=== PATIENT | female | born 1945 | race Caucasian/White ===

== ENCOUNTER 2016-05-12 18:34 | Inpatient (IN) | payer MEDICARE, BC ==
[2016-05-12] MEDS ORDERED: ONDANSETRON HCL IV 4 MG/2 ML VIAL IVP ONE (18:51)
[2016-05-12] MEDS ORDERED: MORPHINE SULFATE 5 MG/ML PFS IVP ONE ×2 (18:51→20:49)
--- NOTE | 2016-05-12 18:56 | Emergency Department Record ---
History of Present Illness - General Chief Complaint: Abdominal Pain Stated Complaint: ABD PAIN Time Seen by Provider: 05/12/16 18:41 Source: Patient Mode of Arrival: Ambulatory Limitations: No limitations - History of Present Illness Initial Comments: 71 yo female presents to ED with a CC of epigastric pain that has since traveled down to the kody-umbilical and RLQ on examination. Patient denies nausea or vomiting, denies change in stools. Patient denies fevers, chills, or urinary symptoms. Patient denies health problems other than HTN. Patient is s/ p RENAE nunez. Complaint: Abdominal pain Onset/Timin -: Hour(s) Location: Epigastric Radiation: RLQ Severity: Moderate Quality: Aching Consistency: Constant Improves With: Nothing Worsens With: Other (palpation) Associated Symptoms: Denies other symptoms - Related Data Patient : No Home Medications Medication Instructions Recorded Confirmed Last Taken Aspirin 81 mg PO DAILY 05/12/16 05/12/16 Unknown Cholecalciferol (Vitamin D3) 2 tab PO ASDIR 05/12/16 05/12/16 Unknown [Vitamin D3] Docusate Sodium [Colace] 100 mg PO DAILY 05/12/16 05/12/16 Unknown Estrogens, Conjugated [Premarin] 0 gm VG ASDIR 05/12/16 05/12/16 Unknown Fexofenadine HCl [Nicky Allergy] 180 mg PO DAILY 05/12/16 05/12/16 Unknown Glucosamine/Chondroiti/Hrb#270 1 each PO DAILY 05/12/16 05/12/16 Unknown [Cosamin Asu Capsule] Ipratropium [place] [Atrovent Hfa] 12.9 gm IH TID 05/12/16 05/12/16 Unknown Losartan Potassium [Cozaar] 25 mg PO DAILY 05/12/16 05/12/16 Unknown Mometasone/Formoterol [Dulera 100 2 spray INH DAILY 05/12/16 05/12/16 Unknown Mcg/5 Mcg Inhaler] Omeprazole 20 mg PO DAILY 05/12/16 05/12/16 Unknown Polyethylene Glycol 3350 [Miralax] 17 gm PO DAILY 05/12/16 05/12/16 Unknown Psyllium Husk [Metamucil] 660 gm PO ASDIR 05/12/16 05/12/16 Unknown Sodium Fluoride/Potassium Nit 100 ml DT DAILY 05/12/16 05/12/16 Unknown [Prevident 5000 Sensitive Paste] Triamcinolone Acet Cream [Kenalog 1 apply TP TID 05/12/16 05/12/16 Unknown Cream] Valacyclovir HCl [Valtrex] 1,000 mg PO TID PRN 05/12/16 05/12/16 Unknown Allergies Allergy/AdvReac Type Severity Reaction Status Date / Time adhesive tape Allergy PT UNSURE Verified 05/12/16 19:26 OF REACTION aloe vera [From Dermoplast] Allergy PT UNSURE Verified 05/12/16 19:26 OF REACTION benzocaine [From Dermoplast] Allergy PT UNSURE Verified 05/12/16 19:26 OF REACTION fexofenadine HCl Allergy PT UNSURE Verified 05/12/16 19:26 [From Nicky] OF REACTION lanolin [From Dermoplast] Allergy PT UNSURE Verified 05/12/16 19:26 OF REACTION nitrofurantoin Allergy PT UNSURE Verified 05/12/16 19:26 macrocrystalline OF REACTION [From Macrodantin] novobiocin Allergy PT UNSURE Verified 05/12/16 19:26 OF REACTION Penicillins Allergy PT UNSURE Verified 05/12/16 19:11 OF REACTION tetracycline Allergy PT UNSURE Verified 05/12/16 19:11 OF REACTION panalba Allergy PT UNSURE Uncoded 05/12/16 19:26 OF REACTION Review of Systems Constitutional: Denies: Chills, Fever, Malaise, Night sweats Eyes: Denies: Eye discharge, Eye pain ENT: Denies: Congestion, Ear pain, Epistaxis Respiratory: Denies: Cough, Dyspnea Cardiovascular: Denies: Chest pain, Dyspnea on exertion Endocrine: Denies: Fatigue, Heat or cold intolerance Gastrointestinal: Reports: Abdominal pain. Denies: Nausea, Vomiting Genitourinary: Denies: Frequency, Hematuria, Incontinence Musculoskeletal: Denies: Arthralgia, Back pain, Gout, Joint swelling Skin: Denies: Bruising, Change in color Neurological: Denies: Abnormal gait, Confusion, Headache, Tingling, Tremors Psychiatric: Denies: Anxiety Hematological/Lymphatic: Denies: Anemia, Blood Clots Physical Exam - General General Appearance: Alert, Oriented x3, Cooperative, Mild distress Limitations: No limitations - Head Head exam: Atraumatic, Normocephalic, Normal inspection Head exam detail: negative: Abrasion, Contusion, Marquez's sign, General tenderness, Hematoma, Laceration - Eye Eye exam: Normal appearance. negative: Conjunctival injection, Periorbital swelling, Periorbital tenderness, Scleral icterus - ENT Ear exam: negative: Auricular hematoma, Auricular trauma Nasal Exam: negative: Active bleeding, Discharge, Dried blood, Foreign body Mouth exam: negative: Drooling, Laceration, Muffled voice, Tongue elevation - Neck Neck exam: Normal inspection. negative: Meningismus, Tenderness - Respiratory Respiratory exam: Normal lung sounds bilaterally. negative: Respiratory distress, Rhonchi, Stridor, Wheezes - Cardiovascular Cardiovascular Exam: Regular rate, Normal rhythm, Normal heart sounds - GI/Abdominal GI/Abdominal exam: Soft, Tenderness, Other (TTP epigastric, kody-umbilical, and RLQ regions on examination, no rebound, guarding, or peritoneal signs.). negative: Pulsatile mass, Rebound, Rigid - Rectal Rectal exam: Deferred - exam: Deferred - Extremities Extremities exam: Normal inspection. negative: Calf tenderness, Pedal edema, Tenderness - Back Back exam: Denies: CVA tenderness (R), CVA tenderness (L) - Neurological Neurological exam: Alert, Normal gait, Oriented X3 - Psychiatric Psychiatric exam: Normal affect, Normal mood - Skin Skin exam: Normal color. negative: Abrasion Type of lesion: negative: abrasion Course - Reevaluation(s) Reevaluation #1: 05/12/16 19:17 EKG: NSR 63 Normal axis, normal intervals T wave inversion III, AVF, ST changes V5-V6. No previous on record. Reevaluation #2: 05/12/16 20:13 Labs reviewed and are grossly unremarkable for an acute process. Reevaluation #3: 05/12/16 20:38 CT Abdomen and Pelvis: SBO right lower quadrant likely secondary to adhesions vs. internal hernia. Reevaluation #4: 05/12/16 20:51 Case was discussed with Faith Zelaya, will accept admission. Medical Decision Making - Lab Data Result diagrams: 05/12/16 19:20 05/12/16 19:20 Disposition Disposition: Admit Clinical Impression: SBO (small bowel obstruction) Disposition: Still a Patient at [facility] Decision to Admit: Admit from ER Decision to Admit Date: 05/12/16 Decision to Admit Time: 20:53 Condition: (2) Stable Forms: Patient Portal Access Time of Disposition: 20:53
[2016-05-12] MEDS ORDERED: 0.9 % SODIUM CHLORIDE 1000ML 1,000 ML IV SCH (19:00)
[2016-05-12 19:31] LABS: BASO % 0.2 % (0-6); EOS % 1.5 % (0-6); GRAN % 63.9 % (47-80); HEMATOCRIT 41.2 % (35.0-47.0); HEMOGLOBIN 13.8 gm/dl (11.6-16.0); LYMPH % 28.1 % (16-45); MEAN CELL VOLUME 89.2 fl (81-97); MEAN CORPUSCULAR HEMOGLOBIN 29.9 pg (27-33); MEAN CORPUSCULAR HGB CONC 33.5 g/dl (32-36); MEAN PLATELET VOLUME 10.2 fl (7.4-10.4); MONO % 6.3 % (0-9); PLATELET COUNT 302 K/uL (130-400); RED BLOOD COUNT 4.62 M/uL (3.80-5.40); RED CELL DISTRIBUTION WIDTH 13.5 % (11.5-14.5); WHITE BLOOD COUNT W/O DIFF 8.1 K/uL (4.2-12.2)
[2016-05-12 19:45] LABS: ALB/GLOB RATIO 1.3 (1.1-1.8); ALBUMIN 4.2 gm/dL (3.5-5.0); ALKALINE PHOSPHATASE 90 U/L (38-126); ALT/SGPT 32 U/L (9-52); AST/SGOT 24 U/L (14-36); BLOOD UREA NITROGEN 15 mg/dL (7-17); CREATININE 0.8 mg/dL (0.52-1.04); EST GLOMERULAR FILTRATION RATE > 60 ml/min; GLUCOSE,RANDOM 136 mg/dL (70-110); LIPASE 70 U/L (23-300); TOTAL PROTEIN 7.4 gm/dL (6.3-8.2)
[2016-05-12 20:45] LABS: URINE APPEARANCE CLEAR; URINE BILIRUBIN NEGATIVE (NEGATIVE); URINE COLOR YELLOW; URINE GLUCOSE (UA) NEGATIVE (NEGATIVE); URINE KETONE NEGATIVE (NEGATIVE); URINE LEUKOCYTE ESTERASE NEGATIVE (NEGATIVE); URINE NITRITE NEGATIVE (NEGATIVE); URINE PROTEIN NEGATIVE (NEGATIVE); URINE UROBILINOGEN 0.2 E.U./dL (0.20 - 1.00)
[2016-05-12 20:46] LABS: URINE BLOOD NEGATIVE (NEGATIVE)
[2016-05-12] MEDS ORDERED: TRIAMCINOLONE ACET 0.1% CREAM 15G TUBE TOP SCH (22:19)
[2016-05-12] MEDS ORDERED: IPRATROPIUM INH SCH (22:19)
[2016-05-12] MEDS ORDERED: ESTROGENS CONJ VG SCH (22:19)
[2016-05-12] MEDS ORDERED: 0.9 % SODIUM CHLORIDE 1000ML 1,000 ML IV PRN (22:19)
[2016-05-13] MEDS: MORPHINE SULFATE 5 MG/ML PFS IVP PRN ×5 (00:04→22:53)
[2016-05-13] MEDS: ONDANSETRON HCL IV 4 MG/2 ML VIAL IVP PRN ×4 (00:17→16:12)
[2016-05-13] MEDS: CALCIUM CARBONATE 500 MG TAB.CHEW PO PRN (05:32)
--- NOTE | 2016-05-13 07:26 | History & Physical ---
History of Present Illness - Date of Service Date of Service for History & Physical: 05/13/16 - History of Present Illness Admitting Diagnosis: Small Bowel Obstruction History of Present Illness: 71yo female with CC of epigastric pain radiating to the lower right quadrant. She has a history of high blood pressure and several abdominal surgeries including lap mayra, total abdominal hysterectomy, tubal ligation, and rectocele. Patient presented to the ED yesterday evening with sharp pain in the epgastric region radiating to her right lower abdomen unlike anything she had before. She says this pain came on suddenly after eating some frito's. She says the pain became so intense she decided to come to the ED. while in the ED, patient had negative CE and EKG with some T wav inversions with no old ekg to compare. CBC and CMP unremarkable. she had abdominal CT that showed likely SBO in the right lower quadrant. Dr. Perry was contacted by ED physician. Patient started on IV NS at 125cc/hr, made NPO and admitted for obstruction. 05/13/16- Patient states she is feeling better this morning. Still having abdominal pain in the epigastric region that is constant at about a 3-4. She reprots feeling the belly is more distended than usual. Last BM was yesterday morning. Says she had flatulence up until before she came to the ED. Not sure if she has passed any since. Had not been constipated leading up to this. Had normal BM daily. no liquid stool. She did have one episode of bile emesis. She says she is not really feeling nauseous and has been belching some. She denies previous obstructions. PCP: Brinda Travel Screening - Travel/Exposure Within Last 30 Days Have you traveled within the last 30 days?: No - Travel/Exposure Within Last Year Have you traveled outside the [place] in the last year?: No - Additonal Travel Details Have you been exposed to anyone with a communicable illness?: No - Travel Symptoms Symptom Screening: Stomach Pain Review of Systems Constitutional: Denies: Chills, Fever, Malaise, Night sweats Eyes: Denies: Eye discharge, Eye pain ENT: Denies: Congestion, Ear pain, Epistaxis Respiratory: Denies: Cough, Dyspnea Cardiovascular: Denies: Chest pain, Dyspnea on exertion Endocrine: Denies: Fatigue, Heat or cold intolerance Gastrointestinal: Reports: Abdominal pain. Denies: Nausea, Vomiting Genitourinary: Denies: Frequency, Hematuria, Incontinence Musculoskeletal: Denies: Arthralgia, Back pain, Gout, Joint swelling Skin: Denies: Bruising, Change in color Neurological: Denies: Abnormal gait, Confusion, Headache, Tingling, Tremors Psychiatric: Denies: Anxiety Hematological/Lymphatic: Denies: Anemia, Blood Clots Past Medical History - SOCIAL HISTORY Smoking Status: Never smoker Alcohol Use: Rare Drug Use: None - RESPIRATORY Hx Respiratory Disorders: No - CARDIOVASCULAR Hx Cardio Disorders: Yes Hx Hypertension: Yes - NEURO Hx Neuro Disorders: No Hx TIA: Yes (1999) - GI Hx GI Disorders: No Hx Hiatal Hernia: Yes - Hx Genitourinary Disorders: No Hx UTI: Yes - ENDOCRINE Hx Endocrine Disorders: No - MUSCULOSKELETAL Hx Musculoskeletal Disorders: Yes Hx Arthritis: Yes - PSYCH Hx Psych Problems: No - HEMATOLOGY/ONCOLOGY Hx Hematology/Oncology Disorders: No Family Medical History Any Significant Family History?: No Hx Diabetes: Father, Brother/Sister Hx HTN: Mother, Brother/Sister Hx Stroke: Grandparents H&P Meds/Allergies - Allergies Allergies: Allergies Allergy/AdvReac Type Severity Reaction Status Date / Time adhesive tape Allergy PT UNSURE Verified 05/12/16 19:26 OF REACTION aloe vera [From Dermoplast] Allergy PT UNSURE Verified 05/12/16 19:26 OF REACTION benzocaine [From Dermoplast] Allergy PT UNSURE Verified 05/12/16 19:26 OF REACTION fexofenadine HCl Allergy PT UNSURE Verified 05/12/16 19:26 [From Nicky] OF REACTION lanolin [From Dermoplast] Allergy PT UNSURE Verified 05/12/16 19:26 OF REACTION nitrofurantoin Allergy PT UNSURE Verified 05/12/16 19:26 macrocrystalline OF REACTION [From Macrodantin] novobiocin Allergy PT UNSURE Verified 05/12/16 19:26 OF REACTION Penicillins Allergy PT UNSURE Verified 05/12/16 19:11 OF REACTION tetracycline Allergy PT UNSURE Verified 05/12/16 19:11 OF REACTION panalba Allergy PT UNSURE Uncoded 05/12/16 19:26 OF REACTION - Home Medications Home Medications Medication Instructions Recorded Confirmed Last Taken Aspirin 81 mg PO DAILY 05/12/16 05/12/16 Unknown Cholecalciferol (Vitamin D3) 2 tab PO ASDIR 05/12/16 05/12/16 Unknown [Vitamin D3] Docusate Sodium [Colace] 100 mg PO BID 05/12/16 05/13/16 Unknown Estrogens, Conjugated [Premarin] 0 gm VG ASDIR 05/12/16 05/12/16 Unknown Fexofenadine HCl [Nicky Allergy] 180 mg PO DAILY 05/12/16 05/12/16 Unknown Glucosamine/Chondroiti/Hrb#270 1 each PO DAILY 05/12/16 05/12/16 Unknown [Cosamin Asu Capsule] Losartan Potassium [Cozaar] 25 mg PO DAILY 05/12/16 05/12/16 Unknown Omeprazole 20 mg PO DAILYAC 05/12/16 05/13/16 Unknown Polyethylene Glycol 3350 [Miralax] 17 gm PO DAILY PRN 05/12/16 05/12/16 Unknown Psyllium [place] [Metamucil] 660 gm PO ASDIR 05/12/16 05/12/16 Unknown Sodium Fluoride/Potassium Nit 100 ml DT DAILY 05/12/16 05/12/16 Unknown [Prevident 5000 Sensitive Paste] Triamcinolone Acet Cream [Kenalog 1 apply TP TID PRN 05/12/16 05/12/16 Unknown Cream] Valacyclovir HCl [Valtrex] 1,000 mg PO TID PRN 05/12/16 05/12/16 Unknown - Active Medications Active Medications: Current Medications Calcium Carbonate/Glycine (Tums) 500 mg PO QID PRN PRN Reason: INDIGESTION Last Admin: 05/13/16 05:32 Dose: 1,000 mg Estrogens Conjugated (Premarin) 4 gm VG ASDIR [facility] Sodium Chloride () 1,000 mls @ 125 mls/hr IV .Q8H PRN PRN Reason: LARGE VOLUME IV Last Admin: 05/13/16 05:59 Dose: 125 mls/hr Ipratropium [place] (Atrovent Hfa) puff INH TID JOCELYNN Losartan Potassium (Cozaar) 25 mg PO DAILY JOCELYNN Morphine Sulfate (Morphine Sulfate) 5 mg IVP Q4HR PRN PRN Reason: Abdominal Pain Stop: 05/19/16 22:20 Last Admin: 05/13/16 00:04 Dose: 5 mg Non-Formulary Medication (Mometasone/Formoterol [Dulera 100 Mcg/5 Mcg Inhaler]) 2 spray INH DAILY [facility] Ondansetron HCl (Zofran) 4 mg IVP Q4H PRN PRN Reason: NAUSEA Last Admin: 05/13/16 03:31 Dose: 4 mg Triamcinolone Acetonide (Kenalog Cream) gm TOP TID [facility] Physical Exam - Vital Signs Vital Signs: Vital Signs - Last 24 Hrs Temp Pulse Resp BP Pulse Ox 05/13/16 06:10 98.7 F 74 20 111/62 95 05/12/16 21:20 97.6 F 73 20 121/67 96 - General General Appearance: Alert, Oriented x3, Cooperative, No acute distress Limitations: No limitations - Head Head exam: Atraumatic, Normocephalic, Normal inspection Head exam detail: negative: Abrasion, Contusion, Marquez's sign, General tenderness, Hematoma, Laceration - Eye Eye exam: Normal appearance. negative: Conjunctival injection, Periorbital swelling, Periorbital tenderness, Scleral icterus - ENT Ear exam: negative: Auricular hematoma, Auricular trauma Nasal Exam: negative: Active bleeding, Discharge, Dried blood, Foreign body Mouth exam: negative: Drooling, Laceration, Muffled voice, Tongue elevation - Neck Neck exam: Normal inspection. negative: Meningismus, Tenderness - Respiratory Respiratory exam: Normal lung sounds bilaterally. negative: Respiratory distress, Rhonchi, Stridor, Wheezes - Cardiovascular Cardiovascular Exam: Regular rate, Normal rhythm, Normal heart sounds - GI/Abdominal GI/Abdominal exam: Soft, Normal bowel sounds, Distended (mildly distended but very soft), Tenderness (TTP epigastric region and mildly so throughout ). negative: Guarding, Pulsatile mass, Rebound, Rigid - Rectal Rectal exam: Deferred - exam: Deferred - Extremities Extremities exam: Normal inspection. negative: Calf tenderness, Pedal edema, Tenderness - Back Back exam: Denies: CVA tenderness (R), CVA tenderness (L) - Neurological Neurological exam: Alert, Normal gait, Oriented X3 - Psychiatric Psychiatric exam: Normal affect, Normal mood - Skin Skin exam: Normal color. negative: Abrasion Type of lesion: negative: abrasion Results - Labs Result Diagrams: 05/14/16 06:10 05/14/16 06:10 - Imaging and Cardiology CT scan - abdomen Status: Report reviewed (sbo in right lower quadrant) VTE H&P Assessment - Risk for VTE Risk for VTE: Yes Risk Level: High Risk Assessment Date: 05/13/16 Risk Assessment Time: 13:00 VTE Orders Placed or Will Be Placed: Yes Plan - Inpatient Certification Inpatient Certification: Inpatient criteria: risk factors: age, Small bowel obstruction Estimated length: 48-72H Services: surgical consultation, IV fluids 05/14/16 07:27 - Detailed Diagnosis and Plan (1) SBO (small bowel obstruction) Current Visit: Yes Status: Acute Base Code: K56.69 - OTHER INTESTINAL OBSTRUCTION Comment: 05/13/16- CT abdomen showing SBO in the RLQ. Case discussed with Dr. Mazariegos, surgery. He reviewed CT scan with radiologist, does not feel it is related to hernia. Requested flat and upright films. -Abominal Xr ordered -continue NPO -cotinue morphine 5mg IV q4H prn severe pain -add phenergan 12.5mg IV q4H prn nausea. -continue to monitor need for NG tube -vitals q4H -repeat labs qam (2) Full code status Current Visit: Yes Status: Acute Base Code: Z78.9 - OTHER SPECIFIED HEALTH STATUS Comment: 05/13/16- patient is full code (3) DVT prophylaxis Current Visit: Yes Status: Acute Base Code: [id number] - Comment: 05/13/16- patient high risk with age and restricted mobility -lovenox 40mg sq daily for prophylaxis
--- NOTE | 2016-05-13 07:29 | CT SCAN REPORT ---
EXAM: CT OF THE ABDOMEN AND PELVIS WITH CONTRAST HISTORY: RIGHT SIDED ABDOMINAL PAIN. TECHNIQUE: Sequential axial images were obtained from the diaphragms through the ischiorectal fossa after intravenous administration of 100 ml of Omnipaque 300 contrast material. Comparison: None. FINDINGS: The liver appears normal. The gallbladder has been surgically removed. The pancreas and spleen appear normal. The adrenal glands and kidneys appear normal. There appears to be a small bowel obstruction in the right lower quadrant. The appendix is visualized and appears normal. The cecum is mobile. No gross abnormalities within the colon. There is atheromatous change of the abdominal vasculature. IMPRESSION: 1. FINDINGS SUGGESTIVE OF SMALL BOWEL OBSTRUCTION IN THE RIGHT LOWER QUADRANT. THIS MAY BE RELATED TO ADHESION OR INTERNAL HERNIA. 2. THE APPENDIX IS VISUALIZED AND APPEARS NORMAL. 3. SIGMOID COLON DIVERTICULOSIS WITHOUT EVIDENCE OF DIVERTICULITIS. JOB NUMBER: [id number] MTDD
[2016-05-13] MEDS ORDERED: MOMETASONE INH SCH (10:00)
[2016-05-13] MEDS ORDERED: FORMOTEROL INH SCH (10:00)
[2016-05-13] MEDS ORDERED: PANTOPRAZOLE SODIUM 40 MG TABLET PO SCH (10:00)
[2016-05-13] MEDS: LOSARTAN POTASSIUM 25 MG TABLET PO SCH (10:32)
[2016-05-13] MEDS ORDERED: PANTOPRAZOLE SODIUM IV 40 MG VIAL IVP ONE (12:10)
[2016-05-13] MEDS: 0.9 % SODIUM CHLORIDE 1000ML 1,000 ML IV PRN (19:30)
[2016-05-14] MEDS: PANTOPRAZOLE SODIUM IV 40 MG VIAL IVP SCH (06:16)
[2016-05-14 06:38] LABS: BASO % 0.2 % (0-6); EOS % 0.7 % (0-6); GRAN % 78.5 % (47-80); HEMATOCRIT 40.7 % (35.0-47.0); HEMOGLOBIN 13.5 gm/dl (11.6-16.0); LYMPH % 12.4 % (16-45); MEAN CELL VOLUME 90.8 fl (81-97); MEAN CORPUSCULAR HEMOGLOBIN 30.1 pg (27-33); MEAN CORPUSCULAR HGB CONC 33.2 g/dl (32-36); MEAN PLATELET VOLUME 10.3 fl (7.4-10.4); MONO % 8.2 % (0-9); PLATELET COUNT 273 K/uL (130-400); RED BLOOD COUNT 4.48 M/uL (3.80-5.40); WHITE BLOOD COUNT W/O DIFF 9.7 K/uL (4.2-12.2)
[2016-05-14 06:51] LABS: ALB/GLOB RATIO 1.2 (1.1-1.8); ALBUMIN 3.4 gm/dL (3.5-5.0); ALKALINE PHOSPHATASE 68 U/L (38-126); ALT/SGPT 60 U/L (9-52); AST/SGOT 33 U/L (14-36); BILIRUBIN,TOTAL 0.44 mg/dL (0.2-1.3); BLOOD UREA NITROGEN 11 mg/dL (7-17); CREATININE 0.7 mg/dL (0.52-1.04); EST GLOMERULAR FILTRATION RATE > 60 ml/min; GLUCOSE,RANDOM 102 mg/dL (70-110); TOTAL PROTEIN 6.2 gm/dL (6.3-8.2)
--- NOTE | 2016-05-14 07:32 | Physician Progress Note ---
Subjective - Date Date of Physician Progress Note: 05/14/16 - Subjective Subjective Comment: 05/14/16- Patient reports continued improvement in her abdominal pain. says she did have one episode where the pain was up to about a 5-6 but improved with morphine. She has not had nay further emesis and not feeling nauseated. Has not passed any stool or flatulence yet. urinating normally. Objective - Vital Signs Vital Signs: Vital Signs - Last 24 Hrs Temp Pulse Resp BP Pulse Ox 05/14/16 03:31 18 98 05/13/16 22:00 98.8 F 75 18 118/61 92 L 05/13/16 21:00 18 05/13/16 16:41 98.6 F 75 15 126/68 97 - General General Appearance: Alert, Oriented x3, Cooperative, No acute distress Limitations: No limitations - Head Head exam: Atraumatic, Normocephalic, Normal inspection Head exam detail: negative: Abrasion, Contusion, Marquez's sign, General tenderness, Hematoma, Laceration - Eye Eye exam: Normal appearance. negative: Conjunctival injection, Periorbital swelling, Periorbital tenderness, Scleral icterus - ENT Ear exam: negative: Auricular hematoma, Auricular trauma Nasal Exam: negative: Active bleeding, Discharge, Dried blood, Foreign body Mouth exam: negative: Drooling, Laceration, Muffled voice, Tongue elevation - Neck Neck exam: Normal inspection. negative: Meningismus, Tenderness - Respiratory Respiratory exam: Normal lung sounds bilaterally. negative: Respiratory distress, Rhonchi, Stridor, Wheezes - Cardiovascular Cardiovascular Exam: Regular rate, Normal rhythm, Normal heart sounds - GI/Abdominal GI/Abdominal exam: Soft, Normal bowel sounds, Distended (mildly distended but very soft). negative: Guarding, Pulsatile mass, Rebound, Rigid, Tenderness - Rectal Rectal exam: Deferred - exam: Deferred - Extremities Extremities exam: Normal inspection. negative: Calf tenderness, Pedal edema, Tenderness - Back Back exam: Denies: CVA tenderness (R), CVA tenderness (L) - Neurological Neurological exam: Alert, Normal gait, Oriented X3 - Psychiatric Psychiatric exam: Normal affect, Normal mood - Skin Skin exam: Normal color. negative: Abrasion Type of lesion: negative: abrasion Assessment and Plan - Assessment and Plan (1) SBO (small bowel obstruction) Current Visit: Yes Status: Acute Base Code: K56.69 - OTHER INTESTINAL OBSTRUCTION Comment: 05/14/16- CT abdomen showing SBO in the RLQ. Plain upright and flat films showed fluid levels in small bowel but improvement in distension. Dr. Mazariegos evaluated patient this morning. -per Dr. Mazariegos will do dulcolax suppository and milk of magnesium 45ml -advance to ice chips -cotinue morphine 5mg IV q3H prn severe pain -continue phenergan 12.5mg IV q4H prn nausea. -vitals q8H -repeat labs qam -repeat labs qam (2) Full code status Current Visit: Yes Status: Acute Base Code: Z78.9 - OTHER SPECIFIED HEALTH STATUS Comment: 05/14/16- patient is full code (3) DVT prophylaxis Current Visit: Yes Status: Acute Base Code: [id number] - Comment: 05/14/16- patient high risk with age and restricted mobility -lovenox 40mg sq daily for prophylaxis Results - Labs Result Diagrams: 05/14/16 06:10 05/14/16 06:10 Labs Last 24 Hours: Laboratory Results - last 24 hr 05/14/16 05/14/16 06:10 06:10 WBC 9.7 RBC 4.48 Hgb 13.5 Hct 40.7 MCV 90.8 MCH 30.1 MCHC 33.2 RDW 14.0 Plt Count 273 MPV 10.3 Gran % 78.5 Lymphocytes % 12.4 L Monocytes % 8.2 Eosinophils % 0.7 Basophils % 0.2 Sodium 140 Potassium 4.0 Chloride 104 Carbon Dioxide 29.0 Anion Gap 7.0 BUN 11 Creatinine 0.7 Estimated GFR > 60 Random Glucose 102 Calcium 8.3 L Total Bilirubin 0.44 AST 33 ALT 60 H Alkaline Phosphatase 68 Total Protein 6.2 L Albumin 3.4 L Globulin 2.8 Albumin/Globulin Ratio 1.2 DVT/PE Assessment - Risk for VTE Risk for VTE: No Risk Level: High Risk Assessment Date: 05/13/16 Risk Assessment Time: 13:00 VTE Orders Placed or Will Be Placed: Yes - Active Medicaitons Current Medications: Current Medications Calcium Carbonate/Glycine (Tums) 500 mg PO QID PRN PRN Reason: INDIGESTION Last Admin: 05/13/16 05:32 Dose: 1,000 mg Sodium Chloride () 1,000 mls @ 75 mls/hr IV .[id number] PRN PRN Reason: LARGE VOLUME IV Last Admin: 05/13/16 19:30 Dose: 75 mls/hr Losartan Potassium (Cozaar) 25 mg PO DAILY [facility] Last Admin: 05/13/16 10:32 Dose: 25 mg Morphine Sulfate (Morphine Sulfate) 5 mg IVP Q3H PRN PRN Reason: Abdominal Pain Stop: 05/19/16 22:20 Last Admin: 05/13/16 22:53 Dose: 5 mg Ondansetron HCl (Zofran) 4 mg IVP Q4H PRN PRN Reason: NAUSEA Last Admin: 05/13/16 16:12 Dose: 4 mg Pantoprazole Sodium (Protonix Iv) [facility] Last Admin: 05/14/16 06:16 Dose: 40 mg Promethazine HCl (Phenergan) 12.5 mg IVP Q4H PRN PRN Reason: NAUSEA AMI Plan - Labs Result Diagrams: 05/14/16 06:10 05/14/16 06:10
--- NOTE | 2016-05-14 07:32 | RADIOLOGY REPORT ---
EXAM: ABDOMEN, TWO VIEWS HISTORY: PATIENT WAS SEEN PREVIOUSLY FOR A PARTIAL SMALL BOWEL OBSTRUCTION. TECHNIQUE: Supine and upright views of the abdomen were provided along with comparison study comparison CT scan of the abdomen and pelvis dated 05/12/16. FINDINGS: Stool is identified within the large bowel. There is contrast identified within the urinary bladder consistent with the patient's history of recent contrasted CT scan. The large bowel does not appear dilated. On the upright view there is an air fluid level within a small bowel within the mid upper abdomen. The dilated loops of small bowel identified within the lower abdomen on the previous examination are not clearly identified on the current examination. There is no radiographic evidence for free intraperitoneal air. Degenerative changes of the lumbar spine are identified. IMPRESSION: THE DILATED LOOPS OF SMALL BOWEL ARE NOT CLEARLY IDENTIFIED ON THE CURRENT EXAMINATION. THERE ARE OCCASIONAL LOOPS OF SMALL BOWEL WITHIN THE MID TO LOWER ABDOMEN WITH AIR FLUID LEVELS WITHOUT CLEAR EVIDENCE OF DILATATION. FOLLOW-UP CT SCAN OF THE ABDOMEN AND PELVIS CAN BE OBTAINED IF CLINICALLY INDICATED. JOB NUMBER: [id number] MTDD
[2016-05-14] MEDS: MORPHINE SULFATE 5 MG/ML PFS IVP PRN ×3 (07:34→20:00)
[2016-05-14] MEDS: 0.9 % SODIUM CHLORIDE 1000ML 1,000 ML IV PRN (07:39)
[2016-05-14] MEDS ORDERED: MAGNESIUM HYDROXIDE 30 ML UDC PO ONE ×2 (09:29→17:05)
[2016-05-14] MEDS ORDERED: BISACODYL 10 MG SUPP RC ONE ×2 (09:29→17:05)
[2016-05-14] MEDS: ENOXAPARIN 40 MG/0.4 ML SYR SQ SCH (10:02)
[2016-05-14] MEDS: LOSARTAN POTASSIUM 25 MG TABLET PO SCH (10:03)
--- NOTE | 2016-05-14 13:01 | Medical Records Consult ---
CONSULTATION DATE: 05/14/2016. SURGEON: Luis Enrique Mazariegos D.O. REFERRING PHYSICIAN: Destiny Hahn M.D. REASON FOR CONSULTATION: Small bowel obstruction. HISTORY OF PRESENT ILLNESS: The patient is a 71-year-old female who, about 36 hours ago, was having a snack at home when she developed some intense abdominal pain. This was accompanied by some nausea and occasional vomiting. She did have a bowel movement prior to coming to the hospital but nothing since. When she was seen in the emergency room, a CT scan was done. This did reveal findings consistent with a possible bowel obstruction. I did review the CT scan with Radiology who felt this more due to an adhesive band. Since being in the hospital she states she has felt well. She had a small amount of nausea last night but nothing today. PAST MEDICAL HISTORY: Is significant for hypertension. PAST SURGICAL HISTORY: Laparoscopic cholecystectomy, tubal ligation, and a hysterectomy. CURRENT MEDICATIONS: She currently takes Vitamin D, Colace, Premarin, Cozaar, MiraLAX, Metamucil, Kenalog, Valtrex. ALLERGIES: Dermabond, penicillin, tetracycline. PHYSICAL EXAMINATION: Vital Signs: Are stable. She is afebrile. Heart: Regular rate and rhythm. Lungs: Clear. Abdomen: Soft and mildly obese. She does have some very minimal tenderness. Bowel sounds are noted. Extremities: The extremities show no trace of edema. DIAGNOSTIC DATA: I did recheck a flat plate and an upright which do show what looks more like an ileus and copious amounts of stool noted. PLAN: At this point we will give her some clear liquids and some bowel stimulation. We will then follow her clinically. Thank you for this referral. Luis Enrique Mazariegos D.O. Date Time JOB NUMBER: [id number] MTDD
[2016-05-14] MEDS ORDERED: RANITIDINE HCL 25 MG/ML 2ML VIAL IVP ONE (23:08)
[2016-05-15] MEDS ORDERED: PANTOPRAZOLE SODIUM IV 40 MG VIAL IVP ONE (01:20)
[2016-05-15] MEDS: PROMETHAZINE HCL 25 MG/ML VIAL IVP PRN (02:36)
[2016-05-15] MEDS: MORPHINE SULFATE 5 MG/ML PFS IVP PRN ×3 (03:23→20:01)
[2016-05-15 06:24] LABS: BASO % 0.1 % (0-6); EOS % 1.4 % (0-6); GRAN % 71.6 % (47-80); HEMATOCRIT 41.6 % (35.0-47.0); HEMOGLOBIN 13.6 gm/dl (11.6-16.0); LYMPH % 16.8 % (16-45); MEAN CELL VOLUME 91.6 fl (81-97); MEAN CORPUSCULAR HGB CONC 32.7 g/dl (32-36); MEAN PLATELET VOLUME 10.4 fl (7.4-10.4); MONO % 10.1 % (0-9); PLATELET COUNT 267 K/uL (130-400); RED BLOOD COUNT 4.54 M/uL (3.80-5.40); RED CELL DISTRIBUTION WIDTH 13.9 % (11.5-14.5); WHITE BLOOD COUNT W/O DIFF 7.1 K/uL (4.2-12.2)
[2016-05-15 06:38] LABS: ALB/GLOB RATIO 1.3 (1.1-1.8); ALBUMIN 3.4 gm/dL (3.5-5.0); ALKALINE PHOSPHATASE 67 U/L (38-126); ALT/SGPT 53 U/L (9-52); ANION GAP 8.3 (7-16); AST/SGOT 28 U/L (14-36); BILIRUBIN,TOTAL 0.47 mg/dL (0.2-1.3); BLOOD UREA NITROGEN 13 mg/dL (7-17); CARBON DIOXIDE 32.7 mmol/L (22-30); CREATININE 0.7 mg/dL (0.52-1.04); EST GLOMERULAR FILTRATION RATE > 60 ml/min; GLUCOSE,RANDOM 97 mg/dL (70-110); TOTAL PROTEIN 6.1 gm/dL (6.3-8.2)
[2016-05-15] MEDS: PANTOPRAZOLE SODIUM IV 40 MG VIAL IVP SCH (07:50)
[2016-05-15] MEDS ORDERED: MAGNESIUM HYDROXIDE 30 ML UDC PO ONE (10:57)
[2016-05-15] MEDS ORDERED: BISACODYL 10 MG SUPP RC ONE (10:58)
[2016-05-15] MEDS: LOSARTAN POTASSIUM 25 MG TABLET PO SCH (11:24)
[2016-05-15] MEDS: ENOXAPARIN 40 MG/0.4 ML SYR SQ SCH (11:24)
--- NOTE | 2016-05-15 15:04 | Physician Progress Note ---
Subjective - Date Date of Physician Progress Note: 05/15/16 - Subjective Subjective Comment: 05/15/16- Patient reports that her pain is about the same as yesterday. She says she does still have occasional short periods of time where the pain will spike up to a 5-6 but then usualy feels about 3-4 the rest of the time. She did have one more episode of emesis 100cc last evening. She passed small amount of flatulence once last night. No bowel movement. Feels more distended today and still has tenderness in the epigastric and right lower quadrant Objective - Vital Signs Vital Signs: Vital Signs - Last 24 Hrs Temp Pulse Resp BP Pulse Ox 05/15/16 08:52 20 05/15/16 08:00 98.7 F 73 18 146/77 96 05/14/16 20:00 98.2 F 75 18 127/72 93 L - General General Appearance: Alert, Oriented x3, Cooperative, No acute distress Limitations: No limitations - Head Head exam: Atraumatic, Normocephalic, Normal inspection Head exam detail: negative: Abrasion, Contusion, Marquez's sign, General tenderness, Hematoma, Laceration - Eye Eye exam: Normal appearance. negative: Conjunctival injection, Periorbital swelling, Periorbital tenderness, Scleral icterus - ENT Ear exam: negative: Auricular hematoma, Auricular trauma Nasal Exam: negative: Active bleeding, Discharge, Dried blood, Foreign body Mouth exam: negative: Drooling, Laceration, Muffled voice, Tongue elevation - Neck Neck exam: Normal inspection. negative: Meningismus, Tenderness - Respiratory Respiratory exam: Normal lung sounds bilaterally. negative: Respiratory distress, Rhonchi, Stridor, Wheezes - Cardiovascular Cardiovascular Exam: Regular rate, Normal rhythm, Normal heart sounds - GI/Abdominal GI/Abdominal exam: Soft (abdomen is still soft), Normal bowel sounds (bowel sounds throughout all 4 quadrants), Distended (small increase in distension today), Tenderness (mild tenderness in the epigastric and RLQ). negative: Guarding, Pulsatile mass, Rebound, Rigid - Rectal Rectal exam: Deferred - exam: Deferred - Extremities Extremities exam: Normal inspection. negative: Calf tenderness, Pedal edema, Tenderness - Back Back exam: Denies: CVA tenderness (R), CVA tenderness (L) - Neurological Neurological exam: Alert, Normal gait, Oriented X3 - Psychiatric Psychiatric exam: Normal affect, Normal mood - Skin Skin exam: Normal color. negative: Abrasion Type of lesion: negative: abrasion Assessment and Plan - Assessment and Plan (1) SBO (small bowel obstruction) Current Visit: Yes Status: Acute Base Code: K56.69 - OTHER INTESTINAL OBSTRUCTION Comment: 05/15/16- Stable. Updated Dr. Mazariegos on patient's status. -per Dr. Mazariegos will repeat dulcolax suppository and milk of magnesium 45ml -repeat plain films -continue ice chips -cotinue morphine 5mg IV q3H prn severe pain -continue phenergan 12.5mg IV q4H prn nausea. -vitals q8H -repeat labs qam (2) Full code status Current Visit: Yes Status: Acute Base Code: Z78.9 - OTHER SPECIFIED HEALTH STATUS Comment: 05/15/16- patient is full code (3) DVT prophylaxis Current Visit: Yes Status: Acute Base Code: [id number] - Comment: 05/15/16- patient high risk with age and restricted mobility -lovenox 40mg sq daily for prophylaxis Results - Labs Result Diagrams: 05/15/16 06:00 05/15/16 06:00 Labs Last 24 Hours: Laboratory Results - last 24 hr 05/15/16 05/15/16 06:00 06:00 WBC 7.1 RBC 4.54 Hgb 13.6 Hct 41.6 MCV 91.6 MCH 30.0 MCHC 32.7 RDW 13.9 Plt Count 267 MPV 10.4 Gran % 71.6 Lymphocytes % 16.8 Monocytes % 10.1 H Eosinophils % 1.4 Basophils % 0.1 Sodium 142 Potassium 3.5 Chloride 101 Carbon Dioxide 32.7 H Anion Gap 8.3 BUN 13 Creatinine 0.7 Estimated GFR > 60 Random Glucose 97 Calcium 8.3 L Total Bilirubin 0.47 AST 28 ALT 53 H Alkaline Phosphatase 67 Total Protein 6.1 L Albumin 3.4 L Globulin 2.7 Albumin/Globulin Ratio 1.3 DVT/PE Assessment - Risk for VTE Risk for VTE: No Risk Level: High Risk Assessment Date: 05/13/16 Risk Assessment Time: 13:00 VTE Orders Placed or Will Be Placed: Yes - Active Medicaitons Current Medications: Current Medications Calcium Carbonate/Glycine (Tums) 500 mg PO QID PRN PRN Reason: INDIGESTION Last Admin: 05/13/16 05:32 Dose: 1,000 mg Enoxaparin Sodium (Lovenox) 40 mg SQ DAILY [facility] Last Admin: 05/15/16 11:24 Dose: 40 mg Sodium Chloride () 1,000 mls @ 75 mls/hr IV .[id number] PRN PRN Reason: LARGE VOLUME IV Last Admin: 05/14/16 07:39 Dose: 75 mls/hr Losartan Potassium (Cozaar) 25 mg PO DAILY [facility] Last Admin: 05/15/16 11:24 Dose: 25 mg Morphine Sulfate (Morphine Sulfate) 5 mg IVP Q3H PRN PRN Reason: Abdominal Pain Stop: 05/19/16 22:20 Last Admin: 05/15/16 07:49 Dose: 5 mg Ondansetron HCl (Zofran) 4 mg IVP Q4H PRN PRN Reason: NAUSEA Last Admin: 05/13/16 16:12 Dose: 4 mg [facility]opraz[facility] ([facility] Iv) [facility] Last Admin: 05/15/16 07:50 Dose: Not Given Promethazine HCl (Phenergan) 12.5 mg IVP Q4H PRN PRN Reason: NAUSEA Last Admin: 05/15/16 02:36 Dose: 12.5 mg AMI Plan - Labs Result Diagrams: 05/15/16 06:00 05/15/16 06:00
[2016-05-15] MEDS: 0.9 % SODIUM CHLORIDE 1000ML 1,000 ML IV PRN (16:52)
[2016-05-15] MEDS: CALCIUM CARBONATE 500 MG TAB.CHEW PO PRN (17:16)
[2016-05-16] MEDS: CALCIUM CARBONATE 500 MG TAB.CHEW PO PRN (00:16)
[2016-05-16] MEDS: ONDANSETRON HCL IV 4 MG/2 ML VIAL IVP PRN ×2 (00:16→18:19)
[2016-05-16 06:37] LABS: BASO % 0.2 % (0-6); EOS % 1.9 % (0-6); GRAN % 60.6 % (47-80); HEMATOCRIT 41.1 % (35.0-47.0); HEMOGLOBIN 13.5 gm/dl (11.6-16.0); LYMPH % 22.4 % (16-45); MEAN CELL VOLUME 91.3 fl (81-97); MEAN CORPUSCULAR HGB CONC 32.8 g/dl (32-36); MEAN PLATELET VOLUME 10.3 fl (7.4-10.4); MONO % 14.9 % (0-9); PLATELET COUNT 273 K/uL (130-400); RED CELL DISTRIBUTION WIDTH 13.9 % (11.5-14.5); WHITE BLOOD COUNT W/O DIFF 5.2 K/uL (4.2-12.2)
[2016-05-16] MEDS: PANTOPRAZOLE SODIUM IV 40 MG VIAL IVP SCH ×2 (06:43→22:15)
[2016-05-16 06:56] LABS: ALB/GLOB RATIO 1.2 (1.1-1.8); ALBUMIN 3.2 gm/dL (3.5-5.0); ALKALINE PHOSPHATASE 61 U/L (38-126); ALT/SGPT 46 U/L (9-52); ANION GAP 6.8 (7-16); AST/SGOT 29 U/L (14-36); BILIRUBIN,TOTAL 0.46 mg/dL (0.2-1.3); BLOOD UREA NITROGEN 14 mg/dL (7-17); CARBON DIOXIDE 33.2 mmol/L (22-30); CREATININE 0.7 mg/dL (0.52-1.04); EST GLOMERULAR FILTRATION RATE > 60 ml/min; GLUCOSE,RANDOM 115 mg/dL (70-110); TOTAL PROTEIN 5.9 gm/dL (6.3-8.2)
[2016-05-16] MEDS: 0.9 % SODIUM CHLORIDE 1000ML 1,000 ML IV PRN ×2 (08:53→17:35)
[2016-05-16] MEDS: ENOXAPARIN 40 MG/0.4 ML SYR SQ SCH (10:08)
[2016-05-16] MEDS: LOSARTAN POTASSIUM 25 MG TABLET PO SCH (10:09)
[2016-05-16] MEDS ORDERED: BISACODYL 10 MG SUPP RC ONE (12:27)
[2016-05-16] MEDS ORDERED: MAGNESIUM HYDROXIDE 30 ML UDC PO ONE (12:27)
[2016-05-16] MEDS: PROMETHAZINE HCL 25 MG/ML VIAL IVP PRN (14:03)
--- NOTE | 2016-05-16 17:29 | Physician Progress Note ---
Subjective - Date Date of Physician Progress Note: 05/16/16 - Subjective Subjective Comment: 05/16/16- Patient reports that yesterday afternoon she began passing flatulence and did pass a small amount of hard stool. She says her stomach feels much better today and she continues to pass flatulence. She has tolerated a few sips of apple juice and a bite of jello without any pain or emesis. She has been up and walking the hallways. She feels like she is still distended in the epigastric area but better than yesterday. Objective - Vital Signs Vital Signs: Vital Signs - Last 24 Hrs Temp Pulse Resp BP Pulse Ox 05/16/16 08:00 97.8 F 75 16 162/87 97 05/16/16 07:58 20 05/15/16 20:00 98.3 F 76 18 152/72 94 L - General General Appearance: Alert, Oriented x3, Cooperative, No acute distress Limitations: No limitations - Head Head exam: Atraumatic, Normocephalic, Normal inspection Head exam detail: negative: Abrasion, Contusion, Marquez's sign, General tenderness, Hematoma, Laceration - Eye Eye exam: Normal appearance. negative: Conjunctival injection, Periorbital swelling, Periorbital tenderness, Scleral icterus - ENT Ear exam: negative: Auricular hematoma, Auricular trauma Nasal Exam: negative: Active bleeding, Discharge, Dried blood, Foreign body Mouth exam: negative: Drooling, Laceration, Muffled voice, Tongue elevation - Neck Neck exam: Normal inspection. negative: Meningismus, Tenderness - Respiratory Respiratory exam: Normal lung sounds bilaterally. negative: Respiratory distress, Rhonchi, Stridor, Wheezes - Cardiovascular Cardiovascular Exam: Regular rate, Normal rhythm, Normal heart sounds - GI/Abdominal GI/Abdominal exam: Soft (abdomen is still soft), Normal bowel sounds (bowel sounds throughout all 4 quadrants), Distended (distended ). negative: Guarding , Pulsatile mass, Rebound, Rigid, Tenderness (no tenderness today) - Rectal Rectal exam: Deferred - exam: Deferred - Extremities Extremities exam: Normal inspection. negative: Calf tenderness, Pedal edema, Tenderness - Back Back exam: Denies: CVA tenderness (R), CVA tenderness (L) - Neurological Neurological exam: Alert, Normal gait, Oriented X3 - Psychiatric Psychiatric exam: Normal affect, Normal mood - Skin Skin exam: Normal color. negative: Abrasion Type of lesion: negative: abrasion Assessment and Plan - Assessment and Plan (1) SBO (small bowel obstruction) Current Visit: Yes Status: Acute Base Code: K56.69 - OTHER INTESTINAL OBSTRUCTION Comment: 05/05/16- Stable. Updated Dr. Mazariegos on patient's status. -will continue IV fluids at 125cc/hr -continue ice chips, small sips of liquid -cotinue morphine 5mg IV q3H prn severe pain. patient has not needed this during the night or afternoon yesterday. -continue phenergan 12.5mg IV q4H prn nausea. -vitals q8H -repeat labs qam (2) Full code status Current Visit: Yes Status: Acute Base Code: Z78.9 - OTHER SPECIFIED HEALTH STATUS Comment: 05/16/16- patient is full code (3) DVT prophylaxis Current Visit: Yes Status: Acute Base Code: [id number] - Comment: 05/16/16- patient high risk with age and restricted mobility -lovenox 40mg sq daily for prophylaxis Results - Labs Result Diagrams: 05/16/16 06:00 05/16/16 06:00 Labs Last 24 Hours: Laboratory Results - last 24 hr 05/16/16 05/16/16 06:00 06:00 WBC 5.2 RBC 4.50 Hgb 13.5 Hct 41.1 MCV 91.3 MCH 30.0 MCHC 32.8 RDW 13.9 Plt Count 273 MPV 10.3 Gran % 60.6 Lymphocytes % 22.4 Monocytes % 14.9 H Eosinophils % 1.9 Basophils % 0.2 Sodium 143 Potassium 3.7 Chloride 103 Carbon Dioxide 33.2 H Anion Gap 6.8 L BUN 14 Creatinine 0.7 Estimated GFR > 60 Random Glucose 115 H Calcium 8.3 L Total Bilirubin 0.46 AST 29 ALT 46 Alkaline Phosphatase 61 Total Protein 5.9 L Albumin 3.2 L Globulin 2.7 Albumin/Globulin Ratio 1.2 DVT/PE Assessment - Risk for VTE Risk for VTE: No Risk Level: High Risk Assessment Date: 05/13/16 Risk Assessment Time: 13:00 VTE Orders Placed or Will Be Placed: Yes - Active Medicaitons Current Medications: Current Medications Bisacodyl (Dulcolax) 10 mg RC NOW ONE Stop: 05/16/16 12:28 Last Admin: 05/16/16 12:40 Dose: 10 mg Calcium Carbonate/Glycine (Tums) 500 mg PO QID PRN PRN Reason: INDIGESTION Last Admin: 05/16/16 00:16 Dose: 500 mg Enoxaparin Sodium (Lovenox) 40 mg SQ DAILY [facility] Last Admin: 05/16/16 10:08 Dose: 40 mg Sodium Chloride () 1,000 mls @ 125 mls/hr IV .Q8H PRN PRN Reason: LARGE VOLUME IV Losartan Potassium (Cozaar) 25 mg PO DAILY [facility] Last Admin: 05/16/16 10:09 Dose: 25 mg Magnesium Hydroxide (Milk Of Magnesium) 45 ml PO NOW ONE Stop: 05/16/16 12:28 Last Admin: 05/16/16 12:40 Dose: 45 ml Morphine Sulfate (Morphine Sulfate) 5 mg IVP Q3H PRN PRN Reason: Abdominal Pain Stop: 05/19/16 22:20 Last Admin: 05/15/16 20:01 Dose: 5 mg Ondansetron HCl (Zofran) 4 mg IVP Q4H PRN PRN Reason: NAUSEA Last Admin: 05/16/16 00:16 Dose: 4 mg Pantoprazole Sodium (Protonix Iv) 20 mg IVP BID [facility] Promethazine HCl (Phenergan) 12.5 mg IVP Q4H PRN PRN Reason: NAUSEA Last Admin: 05/16/16 14:03 Dose: 12.5 mg AMI Plan - Labs Result Diagrams: 05/16/16 06:00 05/16/16 06:00
[2016-05-16] MEDS: MORPHINE SULFATE 5 MG/ML PFS IVP PRN (23:56)
[2016-05-17 07:19] LABS: ALB/GLOB RATIO 1.3 (1.1-1.8); ALBUMIN 3.4 gm/dL (3.5-5.0); ALKALINE PHOSPHATASE 60 U/L (38-126); ALT/SGPT 49 U/L (9-52); AST/SGOT 29 U/L (14-36); BILIRUBIN,TOTAL 0.44 mg/dL (0.2-1.3); BLOOD UREA NITROGEN 12 mg/dL (7-17); CREATININE 0.7 mg/dL (0.52-1.04); EST GLOMERULAR FILTRATION RATE > 60 ml/min; GLUCOSE,RANDOM 90 mg/dL (70-110); TOTAL PROTEIN 6.1 gm/dL (6.3-8.2)
--- NOTE | 2016-05-17 07:50 | RADIOLOGY REPORT ---
EXAM: ABDOMEN, THREE VIEWS HISTORY: ACUTE EPIGASTRIC ABDOMINAL PAIN. TECHNIQUE: Three views of the abdomen were obtained. Comparison: Abdomen film 05/13/16. FINDINGS: Gaseous prominence of the small bowel in the upper abdomen. Also gaseous prominence of the transverse colon. Abundant fecal material in the cecum and ascending colon. No suspicious calcification. Dilated small bowel in the left lower quadrant measuring up to 3.6 cm. IMPRESSION: 1. DILATED SMALL BOWEL THROUGHOUT THE ABDOMEN MEASURING UP TO 3.6 CM IN THE LEFT LOWER QUADRANT. FINDINGS COULD RELATE TO PARALYTIC ILEUS OR EARLY PARTIAL SMALL BOWEL OBSTRUCTION. 2. ABUNDANT FECAL MATERIAL IN THE CECUM AND ASCENDING COLON. ADDENDUM: Compared to the abdomen CT of 05/12/16, small bowel dilatation is slightly greater in the left lower quadrant in particular. Findings may represent slight worsening of low grade partial small bowel obstruction. JOB NUMBER: [id number] AND [id number] [facility]
--- NOTE | 2016-05-17 07:59 | RADIOLOGY REPORT ---
EXAM: ABDOMEN, TWO VIEWS HISTORY: MID ABDOMINAL PAIN FOR THE PAST FOUR DAYS. BLOATING AND CONSTIPATION. TECHNIQUE: Supine and upright AP views of the abdomen were obtained. Comparison: 05/15/16. FINDINGS: There are multiple distended small bowel loops within the mid abdomen. The overall degree of distention has increased when compared to the prior study. The small bowel loops measure up to 6 cm in diameter. There are multiple associated air fluid levels on the upright view. The appearance is consistent with small bowel obstruction. There is only minor stool within the colon. There is no visible pneumoperitoneum. There is no organomegaly or visible urinary tract calculus. IMPRESSION: FINDINGS CONSISTENT WITH SMALL BOWEL OBSTRUCTION WITH INTERVAL INCREASE IN THE DEGREE OF SMALL BOWEL DISTENTION WHEN COMPARED TO THE PRIOR STUDY. JOB NUMBER: [id number] MTDD
--- NOTE | 2016-05-17 11:07 | Physician Progress Note ---
Subjective - Date Date of Physician Progress Note: 05/17/16 - Subjective Subjective Comment: 05/17/16- Patient was more distended and painful through the night. nursing reported that her belly was sounding a little more firm and that she was having few bowel sounds. She had a large BM this morning and has had much improvement in her pain. She says it was feeling like a belt was being tightened across her upper abdomen and that now feels like it is being released. She denies nausea or emesis. Feels like the protonix is working very well for her. Objective - Vital Signs Vital Signs: Vital Signs - Last 24 Hrs Temp Pulse Resp BP BP BP Pulse Ox 05/17/16 10:33 98.4 F 129/73 05/17/16 09:00 16 05/17/16 07:50 68 16 129/73 96 05/17/16 05:50 98.4 F 68 18 127/68 95 05/17/16 04:30 98.8 F 65 18 116/67 94 L 05/17/16 02:00 97.6 F 71 18 122/64 95 05/16/16 23:50 98.1 F 70 18 136/77 98 05/16/16 21:50 68 18 137/74 95 05/16/16 20:00 75 20 151/77 96 - General General Appearance: Alert, Oriented x3, Cooperative, No acute distress Limitations: No limitations - Head Head exam: Atraumatic, Normocephalic, Normal inspection Head exam detail: negative: Abrasion, Contusion, Marquez's sign, General tenderness, Hematoma, Laceration - Eye Eye exam: Normal appearance. negative: Conjunctival injection, Periorbital swelling, Periorbital tenderness, Scleral icterus - ENT Ear exam: negative: Auricular hematoma, Auricular trauma Nasal Exam: negative: Active bleeding, Discharge, Dried blood, Foreign body Mouth exam: negative: Drooling, Laceration, Muffled voice, Tongue elevation - Neck Neck exam: Normal inspection. negative: Meningismus, Tenderness - Respiratory Respiratory exam: Normal lung sounds bilaterally. negative: Respiratory distress, Rhonchi, Stridor, Wheezes - Cardiovascular Cardiovascular Exam: Regular rate, Normal rhythm, Normal heart sounds - GI/Abdominal GI/Abdominal exam: Soft (abdomen is still soft), Normal bowel sounds (bowel sounds throughout all 4 quadrants), Distended (distended ). negative: Guarding , Pulsatile mass, Rebound, Rigid, Tenderness (no tenderness today) - Rectal Rectal exam: Deferred - exam: Deferred - Extremities Extremities exam: Normal inspection. negative: Calf tenderness, Pedal edema, Tenderness - Back Back exam: Denies: CVA tenderness (R), CVA tenderness (L) - Neurological Neurological exam: Alert, Normal gait, Oriented X3 - Psychiatric Psychiatric exam: Normal affect, Normal mood - Skin Skin exam: Normal color. negative: Abrasion Type of lesion: negative: abrasion Assessment and Plan - Assessment and Plan (1) SBO (small bowel obstruction) Current Visit: Yes Status: Acute Base Code: K56.69 - OTHER INTESTINAL OBSTRUCTION Comment: 05/17/16- improved. Patient had large BM this morning with improvement in her pain and distension. Dr. Mazariegos evaluated patient this morning and has advanced her to clear liquids and would like abdominal imaging repeated today. -XR ordered -will continue IV fluids at 125cc/hr -start clear liquids -cotinue morphine 5mg IV q3H prn severe pain. patient has not needed this during the night or afternoon yesterday. -continue phenergan 12.5mg IV q4H prn nausea. -vitals q8H -repeat labs qam (2) Full code status Current Visit: Yes Status: Acute Base Code: Z78.9 - OTHER SPECIFIED HEALTH STATUS Comment: 05/17/16- patient is full code (3) DVT prophylaxis Current Visit: Yes Status: Acute Base Code: [id number] - Comment: 05/17/16- patient high risk with age and restricted mobility -lovenox 40mg sq daily for prophylaxis Results - Labs Result Diagrams: 05/16/16 06:00 05/17/16 06:00 Labs Last 24 Hours: Laboratory Results - last 24 hr 05/17/16 06:00 Sodium 141 Potassium 3.7 Chloride 105 Carbon Dioxide 29.0 Anion Gap 7.0 BUN 12 Creatinine 0.7 Estimated GFR > 60 Random Glucose 90 Calcium 7.7 L Total Bilirubin 0.44 AST 29 ALT 49 Alkaline Phosphatase 60 Total Protein 6.1 L Albumin 3.4 L Globulin 2.7 Albumin/Globulin Ratio 1.3 DVT/PE Assessment - Risk for VTE Risk for VTE: No Risk Level: High Risk Assessment Date: 05/13/16 Risk Assessment Time: 13:00 VTE Orders Placed or Will Be Placed: Yes - Active Medicaitons Current Medications: Current Medications Calcium Carbonate/Glycine (Tums) 500 mg PO QID PRN PRN Reason: INDIGESTION Last Admin: 05/16/16 00:16 Dose: 500 mg Enoxaparin Sodium (Lovenox) 40 mg SQ DAILY [facility] Last Admin: 05/16/16 10:08 Dose: 40 mg Sodium Chloride () 1,000 mls @ 125 mls/hr IV .Q8H PRN PRN Reason: LARGE VOLUME IV Last Admin: 05/16/16 17:35 Dose: 125 mls/hr Losartan Potassium (Cozaar) 25 mg PO DAILY [facility] Last Admin: 05/16/16 10:09 Dose: 25 mg Morphine Sulfate (Morphine Sulfate) 5 mg IVP Q3H PRN PRN Reason: Abdominal Pain Stop: 05/19/16 22:20 Last Admin: 05/16/16 23:56 Dose: 5 mg Ondansetron HCl (Zofran) 4 mg IVP Q4H PRN PRN Reason: NAUSEA Last Admin: 05/16/16 18:19 Dose: 4 mg Pantoprazole Sodium (Protonix Iv) 20 mg IVP BID [facility] Last Admin: 05/16/16 22:15 Dose: 20 mg Promethazine HCl (Phenergan) 12.5 mg IVP Q4H PRN PRN Reason: NAUSEA Last Admin: 05/16/16 14:03 Dose: 12.5 mg AMI Plan - Labs Result Diagrams: 05/16/16 06:00 05/17/16 06:00
[2016-05-17] MEDS: ENOXAPARIN 40 MG/0.4 ML SYR SQ SCH (11:12)
[2016-05-17] MEDS: LOSARTAN POTASSIUM 25 MG TABLET PO SCH (11:13)
[2016-05-17] MEDS: PANTOPRAZOLE SODIUM IV 40 MG VIAL IVP SCH ×2 (12:23→21:54)
--- NOTE | 2016-05-17 12:55 | Medical Records Consult ---
CONSULTATION DATE: 05/17/2016. HISTORY OF PRESENT ILLNESS: I saw Ms. Rivas on 05/17/2016. Overall over the weekend she has been about the same. She states that she feels better. She did have a large bowel movement this morning which made her feel great. She is currently hungry and wants to eat. PHYSICAL EXAMINATION: Vital Signs: Are stable. She is afebrile. Heart: Regular. Lungs: Clear. Abdomen: Soft. Her abdomen is still mildly distended. She does have bowel sounds noted in all quadrants. DIAGNOSTIC DATA: I did review her x-rays from May 16 which did reveal worsening dilated small bowel loops. IMPRESSION: Partial small bowel obstruction; currently stable and clinically improving. Radiographically the small bowel loops were worse, and we will recheck films today. PLAN: It is all right for her to start on clear liquids. She needs to ambulate more and we will recheck her x-rays today. Luis Enrique Mazariegos D.O. Date Time JOB NUMBER: [id number] MTDD
[2016-05-17] MEDS ORDERED: MAGNESIUM HYDROXIDE 30 ML UDC PO PRN (14:00)
[2016-05-17] MEDS: MAGNESIUM HYDROXIDE 30 ML UDC PO SCH ×2 (16:43→22:10)
[2016-05-17] MEDS: ONDANSETRON HCL IV 4 MG/2 ML VIAL IVP PRN ×2 (17:35→20:42)
[2016-05-17] MEDS: 0.9 % SODIUM CHLORIDE 1000ML 1,000 ML IV PRN (17:40)
[2016-05-17] MEDS: MORPHINE SULFATE 5 MG/ML PFS IVP PRN ×2 (17:40→21:51)
[2016-05-17] MEDS: PROMETHAZINE HCL 25 MG/ML VIAL IVP PRN (21:54)
[2016-05-17] MEDS: CALCIUM CARBONATE 500 MG TAB.CHEW PO PRN (23:52)
[2016-05-18] MEDS: ONDANSETRON HCL IV 4 MG/2 ML VIAL IVP PRN (01:54)
[2016-05-18] MEDS: MORPHINE SULFATE 5 MG/ML PFS IVP PRN (01:57)
[2016-05-18] MEDS: MAGNESIUM HYDROXIDE 30 ML UDC PO SCH (06:24)
[2016-05-18 06:59] LABS: ALB/GLOB RATIO 1.1 (1.1-1.8); ALBUMIN 2.8 gm/dL (3.5-5.0); ALKALINE PHOSPHATASE 62 U/L (38-126); ALT/SGPT 55 U/L (9-52); ANION GAP 6.4 (7-16); AST/SGOT 34 U/L (14-36); BILIRUBIN,TOTAL 0.33 mg/dL (0.2-1.3); BLOOD UREA NITROGEN 8 mg/dL (7-17); CARBON DIOXIDE 28.6 mmol/L (22-30); CREATININE 0.7 mg/dL (0.52-1.04); EST GLOMERULAR FILTRATION RATE > 60 ml/min; GLUCOSE,RANDOM 82 mg/dL (70-110); TOTAL PROTEIN 5.3 gm/dL (6.3-8.2)
--- NOTE | 2016-05-18 07:17 | RADIOLOGY REPORT ---
EXAM: ABDOMEN, TWO VIEWS HISTORY: FOLLOW-UP SMALL BOWEL OBSTRUCTION. TECHNIQUE: AP supine and upright views of the abdomen were obtained. Comparison: Abdomen two views dated 05/16/16. FINDINGS: There are multiple gas and fluid distended, mildly dilated small bowel loops redemonstrated with differential air fluid levels consistent with mid to distal small bowel obstruction. The most dilated segment of small bowel has a diameter of 5.7 cm while on the prior examination it measured 6.1 cm. A small amount of gas and stool is noted within the nondilated colon. No new mass , organomegaly, or suspicious calcification. Vascular calcifications are again noted scattered within the pelvis. No free intraperitoneal air. There is possible small right basilar pleural effusion. Mild bibasilar atelectasis. There are degenerative changes of the visualized spine and hips. IMPRESSION: FINDINGS CONSISTENT WITH MID TO DISTAL SMALL BOWEL OBSTRUCTION WITH THE OVERALL DEGREE OF SMALL BOWEL DILATATION SLIGHTLY IMPROVED IN THE INTERVAL. NO FREE INTRAPERITONEAL AIR. JOB NUMBER: [id number] MTDD
--- NOTE | 2016-05-18 08:01 | Discharge Summary ---
Providers Discharge Summary Date: 05/18/16 Date of admission: 05/13/16 09:20 Expected Date of Discharge: 05/18/16 Attending physician: ALVIN AGUILAR Primary care physician: JONATHAN WILLIAMSON M.D. Physical Exam - Vital Signs Vital Signs: Vital Signs - Last 24 Hrs Temp Pulse Resp BP BP Pulse Ox 05/17/16 20:00 98.0 F 73 18 138/74 95 05/17/16 10:33 98.4 F 129/73 05/17/16 09:00 16 - General General Appearance: Alert, Oriented x3, Cooperative, No acute distress Limitations: No limitations - Head Head exam: Atraumatic, Normocephalic, Normal inspection Head exam detail: negative: Abrasion, Contusion, Marquez's sign, General tenderness, Hematoma, Laceration - Eye Eye exam: Normal appearance. negative: Conjunctival injection, Periorbital swelling, Periorbital tenderness, Scleral icterus - ENT Ear exam: negative: Auricular hematoma, Auricular trauma Nasal Exam: negative: Active bleeding, Discharge, Dried blood, Foreign body Mouth exam: negative: Drooling, Laceration, Muffled voice, Tongue elevation - Neck Neck exam: Normal inspection. negative: Meningismus, Tenderness - Respiratory Respiratory exam: Normal lung sounds bilaterally. negative: Respiratory distress, Rhonchi, Stridor, Wheezes - Cardiovascular Cardiovascular Exam: Regular rate, Normal rhythm, Normal heart sounds - GI/Abdominal GI/Abdominal exam: Soft (abdomen is still soft), Normal bowel sounds (bowel sounds throughout all 4 quadrants), Distended (distended ), Tenderness (no tenderness today). negative: Guarding, Pulsatile mass, Rebound, Rigid - Rectal Rectal exam: Deferred - exam: Deferred - Extremities Extremities exam: Normal inspection. negative: Calf tenderness, Pedal edema, Tenderness - Back Back exam: Denies: CVA tenderness (R), CVA tenderness (L) - Neurological Neurological exam: Alert, Normal gait, Oriented X3 - Psychiatric Psychiatric exam: Normal affect, Normal mood - Skin Skin exam: Normal color. negative: Abrasion Type of lesion: negative: abrasion Hospitalization - Hospitalization Admission Diagnosis: Small Bowel Obstruction - Problem List/Discharge Diagnosis (1) SBO (small bowel obstruction) Current Visit: Yes Status: Acute Base Code: K56.69 - OTHER INTESTINAL OBSTRUCTION Comment: 05/18/16- labile course as patient waxes and wanes in symptoms. Has becomes distended and painful on and off since admission on 05/13. Dr. Mazariegos has consulted with patient multiple times. At this time Dr. Mazariegos would like to proceed with NG tube and transfer to [facility] as medical course does not appear to be clearing symptoms (2) DVT prophylaxis Current Visit: Yes Status: Acute Base Code: [id number] - Comment: 05/17/16- patient high risk with age and restricted mobility -lovenox 40mg sq daily for prophylaxis (3) Full code status Current Visit: Yes Status: Acute Base Code: Z78.9 - OTHER SPECIFIED HEALTH STATUS Comment: 05/17/16- patient is full code - Hospitalization Course Disposition: Acute Care Hospital Transfer Procedures: Imaging and X-Rays 05/13/16 14:02 ABDOMEN 2 VIEW [RAD] Stat 05/15/16 10:53 ABDOMEN 2 VIEW [RAD] Stat 05/16/16 20:50 ABDOMEN 2 VIEW [RAD] Stat 05/17/16 10:34 ABDOMEN 2 VIEW [RAD] Stat Abnormal Labs: Abnormal Lab Results 05/14/16 05/14/16 05/15/16 Range/Units 06:10 06:10 06:00 Lymphocytes % 12.4 L (16-45) % Monocytes % 10.1 H (0-9) % Carbon Dioxide (22-30) mmol/L Anion Gap (7-16) Random Glucose (70-110) mg/dL Calcium 8.3 L (8.5-10.1) mg/dL ALT 60 H (9-52) U/L Total Protein 6.2 L (6.3-8.2) gm/dL Albumin 3.4 L (3.5-5.0) gm/dL 05/15/16 05/16/16 05/16/16 Range/Units 06:00 06:00 06:00 Lymphocytes % (16-45) % Monocytes % 14.9 H (0-9) % Carbon Dioxide 32.7 H 33.2 H (22-30) mmol/L Anion Gap 6.8 L (7-16) Random Glucose 115 H (70-110) mg/dL Calcium 8.3 L 8.3 L (8.5-10.1) mg/dL ALT 53 H (9-52) U/L Total Protein 6.1 L 5.9 L (6.3-8.2) gm/dL Albumin 3.4 L 3.2 L (3.5-5.0) gm/dL 05/17/16 05/18/16 Range/Units 06:00 06:25 Lymphocytes % (16-45) % Monocytes % (0-9) % Carbon Dioxide (22-30) mmol/L Anion Gap 6.4 L (7-16) Random Glucose (70-110) mg/dL Calcium 7.7 L 7.2 L (8.5-10.1) mg/dL ALT 55 H (9-52) U/L Total Protein 6.1 L 5.3 L (6.3-8.2) gm/dL Albumin 3.4 L 2.8 L (3.5-5.0) gm/dL Condition at Discharge: (3) Guarded Discharge Diagnosis: 1) SBO Discharge Medications - Discharge Medications Home Medications: Ambulatory Orders Aspirin 81 mg PO DAILY 05/12/16 [Last Taken Unknown] Cholecalciferol (Vitamin D3) [Vitamin D3] 2 tab PO ASDIR 05/12/16 [Last Taken Unknown] Docusate Sodium [Colace] 100 mg PO BID 05/12/16 [Last Taken Unknown] Estrogens, Conjugated [Premarin] 0 gm VG ASDIR 05/12/16 [Last Taken Unknown] Fexofenadine HCl [Nicky Allergy] 180 mg PO DAILY 05/12/16 [Last Taken Unknown] Glucosamine/Chondroiti/Hrb#270 [Cosamin Asu Capsule] 1 each PO DAILY 05/12/16 [ Last Taken Unknown] Losartan Potassium [Cozaar] 25 mg PO DAILY 05/12/16 [Last Taken Unknown] Omeprazole 20 mg PO DAILYAC 05/12/16 [Last Taken Unknown] Polyethylene Glycol 3350 [Miralax] 17 gm PO DAILY PRN 05/12/16 [Last Taken Unknown] Psyllium Husk [Metamucil] 660 gm PO ASDIR 05/12/16 [Last Taken Unknown] Sodium Fluoride/Potassium Nit [Prevident 5000 Sensitive Paste] 100 ml DT DAILY 05/12/16 [Last Taken Unknown] Triamcinolone Acet Cream [Kenalog Cream] 1 apply TP TID PRN 05/12/16 [Last Taken Unknown] Valacyclovir HCl [Valtrex] 1,000 mg PO TID PRN 05/12/16 [Last Taken Unknown] Discharge Plan - Discharge Instructions
[2016-05-18] MEDS: LOSARTAN POTASSIUM 25 MG TABLET PO SCH (08:37)
== END 2016-05-18 09:00 | disposition short-term general hospital (02) | DRG 390 ==
LOC: ER 18:34 → MEDSURG 21:09 → OBSVTOIN 05-13 09:20
PROVIDERS: ADMIT Family Medicine; ATTEND Family Medicine
DX: K56.69 Other intestinal obstruction (principal); Z78.9 Other specified health status; I10 Essential (primary) hypertension
CPT/HCPCS: 99285 ×2; 96376; 96374; 96375; 83690; 85025; 84484; 80053; 81003; 74177; 93005; 93010; G0378 ×3; Q9967; J2405 ×3; J2270 ×4; 74020; 99220; 99233; 99239; C9113; J1650; J2550; J2780; J7030

== ENCOUNTER 2017-09-26 09:29 | Emergency (ER) | payer MEDICARE, BC ==
--- NOTE | 2017-09-26 10:06 | Emergency Department Record ---
History of Present Illness - General Chief Complaint: Chest Pain Stated Complaint: CHEST PAIN Time Seen by Provider: 09/26/17 09:45 Source: Patient Mode of Arrival: Ambulatory Limitations: No limitations - History of Present Illness Initial Comments: pt c/o palpitations and cp intermittently for 2 days. she called her shirring tender this am and was told to go to ED. MD Complaint: Chest pain, Other Onset/Timin -: Days(s) Severity: Moderate Severity scale (1-10): 1 Quality: Aching, Heaviness Consistency: Intermittent Treatments Prior to Arrival: None - Related Data Allergies Allergy/AdvReac Type Severity Reaction Status Date / Time adhesive tape Allergy PT UNSURE Verified 09/26/17 09:40 OF REACTION aloe vera [From Dermoplast] Allergy PT UNSURE Verified 09/26/17 09:40 OF REACTION benzocaine [From Dermoplast] Allergy PT UNSURE Verified 09/26/17 09:40 OF REACTION fexofenadine HCl Allergy PT UNSURE Verified 09/26/17 09:40 [From Nicky] OF REACTION lanolin [From Dermoplast] Allergy PT UNSURE Verified 09/26/17 09:40 OF REACTION nitrofurantoin Allergy PT UNSURE Verified 09/26/17 09:40 macrocrystalline OF REACTION [From Macrodantin] novobiocin Allergy PT UNSURE Verified 09/26/17 09:40 OF REACTION Penicillins Allergy PT UNSURE Verified 09/26/17 09:40 OF REACTION tetracycline Allergy PT UNSURE Verified 09/26/17 09:40 OF REACTION panalba Allergy PT UNSURE Uncoded 09/26/17 09:40 OF REACTION Travel Screening - Travel/Exposure Within Last 30 Days Have you traveled within the last 30 days?: No - Travel/Exposure Within Last Year Have you traveled outside the [place] in the last year?: No - Additonal Travel Details Have you been exposed to anyone with a communicable illness?: No - Travel Symptoms Symptom Screening: None Review of Systems Reviewed: No additional complaints except as noted below Constitutional: Reports: As per HPI. Denies: Chills, Fever, Malaise, Night sweats, Weakness, Weight change Eyes: Reports: As per HPI. Denies: Eye discharge, Eye pain, Photophobia, Vision change ENT: Reports: As per HPI. Denies: Congestion, Dental pain, Ear pain, Epistaxis , Hearing loss, Throat pain Respiratory: Reports: As per HPI. Denies: Cough, Dyspnea, Hemoptysis, Stridor, Wheezes Cardiovascular: Reports: As per HPI, Chest pain, Palpitations. Denies: Arrhythmia, Dyspnea on exertion, Edema, Murmurs, Orthopnea, Paroxysmal nocturnal dyspnea, Rheumatic Fever, Syncope Endocrine: Reports: As per HPI. Denies: Fatigue, Heat or cold intolerance, Polydipsia, Polyuria Gastrointestinal: Reports: As per HPI. Denies: Abdominal pain, Constipation, Diarrhea, Hematemesis, Hematochezia, Melena, Nausea, Vomiting Genitourinary: Reports: As per HPI. Denies: Abnormal menses, Discharge, Dyspareunia, Dysuria, Frequency, Hematuria, Incontinence, Retention, Urgency Musculoskeletal: Reports: As per HPI. Denies: Arthralgia, Back pain, Gout, Joint swelling, Myalgia, Neck pain Skin: Reports: As per HPI. Denies: Bruising, Change in color, Change in hair/ nails, Lesions, Pruritus, Rash Neurological: Reports: As per HPI. Denies: Abnormal gait, Confusion, Headache, Numbness, Paresthesias, Seizure, Tingling, Tremors, Vertigo, Weakness Psychiatric: Reports: As per HPI. Denies: Anxiety, Auditory hallucinations, Depression, Homicidal thoughts, Suicidal thoughts, Visual hallucinations Hematological/Lymphatic: Reports: As per HPI. Denies: Anemia, Blood Clots, Easy bleeding, Easy bruising, Swollen glands Past Medical History - SOCIAL HISTORY Smoking Status: Never smoker Alcohol Use: None Drug Use: None - RESPIRATORY Hx Respiratory Disorders: No Hx Bronchitis: Yes (flu 2016) - CARDIOVASCULAR Hx Cardio Disorders: Yes Hx Cardiac Cath: Yes (negative 2000) Hx Hypertension: Yes - NEURO Hx Neuro Disorders: No Hx TIA: Yes (1999) - GI Hx GI Disorders: No Hx Hiatal Hernia: Yes Hx Obstructive Bowel: Yes (2016) Comment:: c-diff - Hx Genitourinary Disorders: No Hx UTI: Yes - ENDOCRINE Hx Endocrine Disorders: No - MUSCULOSKELETAL Hx Musculoskeletal Disorders: Yes Hx Arthritis: Yes - PSYCH Hx Psych Problems: No - HEMATOLOGY/ONCOLOGY Hx Hematology/Oncology Disorders: No Family Medical History Any Significant Family History?: Yes Hx Diabetes: Father, Brother/Sister Hx HTN: Mother, Brother/Sister Hx Stroke: Grandparents Physical Exam - General General Appearance: Alert, Oriented x3, Cooperative, Mild distress - Head Head exam: Normal inspection - Eye Eye exam: Normal appearance, PERRL, EOMI Pupils: Normal accommodation - ENT ENT exam: Normal exam, Mucous membranes moist, Normal external ear exam, Normal orophraynx Ear exam: Normal external inspection. negative: External canal tenderness Nasal Exam: Normal inspection. negative: Discharge, Sinus tenderness Mouth exam: Normal external inspection, Tongue normal Teeth exam: Normal inspection. negative: Dental caries Throat exam: Normal inspection. negative: Tonsillar erythema, Tonsillar exudate - Neck Neck exam: Normal inspection, Full ROM. negative: Tenderness - Respiratory Respiratory exam: Normal lung sounds bilaterally. negative: Respiratory distress - Cardiovascular Cardiovascular Exam: Regular rate, Normal rhythm, Normal heart sounds - GI/Abdominal GI/Abdominal exam: Soft, Normal bowel sounds. negative: Tenderness - Rectal Rectal exam: Deferred - exam: Deferred - Extremities Extremities exam: Normal inspection, Full ROM, Normal capillary refill. negative: Tenderness - Back Back exam: Reports: Normal inspection, Full ROM. Denies: Muscle spasm, Rash noted, Tenderness - Neurological Neurological exam: Alert, CN II-XII intact, Normal gait, Oriented X3 - Psychiatric Psychiatric exam: Normal affect, Normal mood - Skin Skin exam: Dry, Intact, Normal color, Warm Course Vital Signs 09/26/17 09:32 Temperature 98.3 F Pulse Rate 94 H Respiratory 18 Rate Blood Pressure 185/94 Pulse Ox 97 - Reevaluation(s) Reevaluation #1: 09/26/17 14:21 pt feels totally better Reevaluation #2: 09/26/17 14:25 d/w dr cordova Medical Decision Making - Lab Data Result diagrams: 09/26/17 09:42 09/26/17 09:42 Disposition Disposition: Discharge Clinical Impression: Arrhythmia Qualifiers: Arrhythmia type: premature depolarization Premature depolarization type: atrial Qualified Code(s): I49.1 - Atrial premature depolarization Chest pain Qualifiers: Chest pain type: unspecified Qualified Code(s): R07.9 - Chest pain, unspecified Disposition: Home, Self-Care Condition: (1) Good Instructions: Chest Pain (ED), Heart Palpitations (ED) Additional Instructions: follow up with shirring tender. return sooner if worse Forms: Patient Portal Access Quality - Quality Measures Quality Measures: N/A - Blood Pressure Screening Does Patient Have Any of the Following: No Blood Pressure Classification: Hypertensive Reading Systolic Measurement: 185 Diastolic Measurement: 94 Screening for High Blood Pressure: < First Hypertensive BP, F/U Documented > [ [id number]] First Hypertensive Follow-up Interventions: Follow-up with rescreen GT 1 day and LT 4 weeks.
[2017-09-26] MEDS ORDERED: ASPIRIN 81 MG CHEWABLE TABLET PO ONE (10:07)
[2017-09-26 10:21] LABS: BASO % 0.3 % (0-6); EOS % 1.3 % (0-6); GRAN % 55.3 % (47-80); HEMATOCRIT 43.4 % (35.0-47.0); HEMOGLOBIN 14.4 gm/dl (11.6-16.0); LYMPH % 36.5 % (16-45); MEAN CELL VOLUME 89.9 fl (81-97); MEAN CORPUSCULAR HEMOGLOBIN 29.8 pg (27-33); MEAN CORPUSCULAR HGB CONC 33.2 g/dl (32-36); MEAN PLATELET VOLUME 10.5 fl (7.4-10.4); MONO % 6.6 % (0-9); PLATELET COUNT 279 K/uL (130-400); RED BLOOD COUNT 4.83 M/uL (3.80-5.40); RED CELL DISTRIBUTION WIDTH 13.5 % (11.5-14.5); WHITE BLOOD COUNT W/O DIFF 5.9 K/uL (4.2-12.2)
[2017-09-26 10:36] LABS: BLOOD UREA NITROGEN 10 mg/dL (8-23); CREATININE 0.7 mg/dL (0.5-0.9); EST GLOMERULAR FILTRATION RATE > 60 mL/min
[2017-09-26 10:39] LABS: GLUCOSE,RANDOM 123 mg/dL (74-109)
[2017-09-26 10:42] LABS: CREATINE PHOSPHOKINASE 76 U/L (26-192)
[2017-09-26 10:45] LABS: CKMB 1.4 ng/mL (<3.77)
[2017-09-26 13:54] LABS: CKMB 1.3 ng/mL (<3.77)
--- NOTE | 2017-09-27 09:01 | CT ANGIOGRAM REPORT ---
EXAM: CTA OF THE CHEST FOR PE WITH POST PROCESSING HISTORY: IRREGULAR HEART RATE, LEFT ARM PAIN AND WEAKNESS, ELEVATED D-DIMER, POSSIBLE PE. TECHNIQUE: CTA of the chest was performed following the intravenous administration of iodinated contrast media. Please see the medical record for IV contrast specifics. Post processing on an independent workstation was performed with multiple 3D MIP series obtained. Comparison: No prior chest CT or chest x-ray with which to compare. FINDINGS: No definite PE identified. There is some ectasia of the ascending aorta measuring up to about 3.8 cm in diameter. No definite aneurysm or dissection of the thoracic aorta evident. No pleural or pericardial effusion evident. No definite hilar or mediastinal adenopathy is seen. There is a small hiatal hernia present. No pneumothorax evident. IMPRESSION: 1. NO DEFINITE PE IDENTIFIED. 2. SOME ECTASIA OF THE ASCENDING AORTA. 3. SMALL HIATAL HERNIA. JOB NUMBER: [id number] MTDD
== END 2017-09-26 14:49 | disposition home or self-care (01) ==
LOC: ER 09:29
DX: I49.1 Atrial premature depolarization (principal); R07.89 Other chest pain; R79.89 Other specified abnormal findings of blood chemistry; M79.602 Pain in left arm; I10 Essential (primary) hypertension; Z86.73 Personal history of transient ischemic attack (TIA), and cerebral infarction without residual deficits
CPT/HCPCS: 99284 ×2; 82550; 85025; 82553; 80048; 84484; 85379; 71275; 93005; 93010; Q9967

== ENCOUNTER 2018-04-20 17:38 | Emergency (ER) | payer MEDICARE, BC ==
[2018-04-20] MEDS ORDERED: DIPHENHYDRAMINE HCL 50 MG/ML VIAL IVP ONE (17:48)
[2018-04-20] MEDS ORDERED: METHYLPREDNISOLONE PF 125MG/VIAL IVP ONE ×2 (17:49→19:12)
[2018-04-20] MEDS ORDERED: RANITIDINE HCL 50 MG in 0.9 % SODIUM CHLORIDE 100ML 100 ML IVPB ONE (17:49)
--- NOTE | 2018-04-20 19:00 | Emergency Department Record ---
History of Present Illness - General Chief complaint: Allergic Reaction Stated complaint: REACTION TO MOTRIN Time Seen by Provider: 04/20/18 17:48 Source: Patient Mode of Arrival: Ambulatory Limitations: No limitations - History of Present Illness Initial Comments: Pt to ED with itching red rash to the left arm up to the chest onset after taking an OTC advil 200mg. Pt had similar in recent past but not as severe. Pt has no JOESPH or tightness to the throat. No new foods, soaps, detergents. No other medications at this time. Onset/Timin -: Hour(s) Exposure: Medication Symptoms: Itching, Rash Treatment Prior to Arrival: None Previous Allergy History: None - Related Data Allergies Allergy/AdvReac Type Severity Reaction Status Date / Time adhesive tape Allergy PT UNSURE Verified 09/26/17 09:40 OF REACTION aloe vera [From Dermoplast] Allergy PT UNSURE Verified 09/26/17 09:40 OF REACTION benzocaine [From Dermoplast] Allergy PT UNSURE Verified 09/26/17 09:40 OF REACTION fexofenadine HCl Allergy PT UNSURE Verified 09/26/17 09:40 [From Nicky] OF REACTION lanolin [From Dermoplast] Allergy PT UNSURE Verified 09/26/17 09:40 OF REACTION nitrofurantoin Allergy PT UNSURE Verified 09/26/17 09:40 macrocrystalline OF REACTION [From Macrodantin] novobiocin Allergy PT UNSURE Verified 09/26/17 09:40 OF REACTION Penicillins Allergy PT UNSURE Verified 09/26/17 09:40 OF REACTION tetracycline Allergy PT UNSURE Verified 09/26/17 09:40 OF REACTION panalba Allergy PT UNSURE Uncoded 09/26/17 09:40 OF REACTION Travel Screening - Travel/Exposure Within Last 30 Days Have you traveled within the last 30 days?: No - Travel/Exposure Within Last Year Have you traveled outside the [place] in the last year?: No - Additonal Travel Details Have you been exposed to anyone with a communicable illness?: No - Travel Symptoms Symptom Screening: None Review of Systems Constitutional: Denies: Chills, Fever, Weakness Eyes: Denies: Eye discharge, Photophobia ENT: Denies: Congestion, Dental pain, Ear pain, Hearing loss Respiratory: Denies: Cough, Dyspnea Cardiovascular: Denies: Arrhythmia, Chest pain Endocrine: Denies: Fatigue Gastrointestinal: Denies: Abdominal pain, Nausea, Vomiting Musculoskeletal: Denies: Arthralgia Skin: Reports: As per HPI Neurological: Denies: Confusion, Headache, Paresthesias Psychiatric: Denies: Anxiety Hematological/Lymphatic: Denies: Anemia Past Medical History - SOCIAL HISTORY Smoking Status: Never smoker Alcohol Use: None Drug Use: None - RESPIRATORY Hx Respiratory Disorders: No Hx Bronchitis: Yes (flu 2016) - CARDIOVASCULAR Hx Cardio Disorders: Yes Hx Cardiac Cath: Yes (negative 2000) Hx Hypertension: Yes - NEURO Hx Neuro Disorders: No Hx TIA: Yes (1999) - GI Hx GI Disorders: No Hx Hiatal Hernia: Yes Hx Obstructive Bowel: Yes (2016) Comment:: c-diff - Hx Genitourinary Disorders: No Hx UTI: Yes - ENDOCRINE Hx Endocrine Disorders: No - MUSCULOSKELETAL Hx Musculoskeletal Disorders: Yes Hx Arthritis: Yes - PSYCH Hx Psych Problems: No - HEMATOLOGY/ONCOLOGY Hx Hematology/Oncology Disorders: No Family Medical History Any Significant Family History?: No Hx Diabetes: Father, Brother/Sister Hx HTN: Mother, Brother/Sister Hx Stroke: Grandparents Physical Exam - General General Appearance: Alert, Oriented x3, Cooperative, Mild distress - Head Head exam: Atraumatic - Eye Eye exam: Normal appearance, PERRL - ENT ENT exam: Normal exam, Mucous membranes moist, Normal external ear exam, Normal orophraynx, TM's normal bilaterally Ear exam: Normal external inspection. negative: External canal tenderness - Neck Neck exam: Normal inspection, Full ROM. negative: Tenderness - Respiratory Respiratory exam: Normal lung sounds bilaterally. negative: Respiratory distress, Wheezes - Cardiovascular Cardiovascular Exam: Regular rate, Normal rhythm, Normal heart sounds. negative : Tachycardia Peripheral Pulses: 2+: Radial (R), Radial (L) - GI/Abdominal GI/Abdominal exam: Soft, Normal bowel sounds. negative: Tenderness - Extremities Extremities exam: Normal inspection. negative: Pedal edema - Back Back exam: Reports: Normal inspection - Neurological Neurological exam: Alert, Normal gait, Oriented X3 - Psychiatric Psychiatric exam: Normal affect - Skin Skin exam: Erythema, Rash, Urticaria. negative: Petechiae (initially on the arm now spread to entire trunk and upper legs. ), Vesicles, Warm Distribution of rash: Back, Chest, RUE, LUE, RLE, LLE Course Vital Signs 04/20/18 17:51 Temperature 97.7 F Pulse Rate [ 60 Pulse Ox Probe] Respiratory 20 Rate Blood Pressure 178/95 [Left Arm] Pulse Ox 98 - Reevaluation(s) Reevaluation #1: 04/20/18 19:03 Seen on arrival - IV with meds. at bedside. Disposition Forms: Patient Portal Access Quality - Blood Pressure Screening Does Patient Have Any of the Following: No Blood Pressure Classification: Hypertensive Reading Systolic Measurement: 178 Diastolic Measurement: 95
[2018-04-20] MEDS ORDERED: METHYLPREDNISOLONE PF 125MG/VIAL IM ONE (19:10)
== END 2018-04-20 18:48 | disposition home or self-care (01) ==
LOC: ER 17:38
DX: L50.0 Allergic urticaria (principal); T39.315A Adverse effect of propionic acid derivatives, initial encounter; I10 Essential (primary) hypertension; R00.2 Palpitations; E55.9 Vitamin D deficiency, unspecified
CPT/HCPCS: 80053; 85025; 96374; 96375; 99284; J1200; J2780; J2930